=== PATIENT | male | born 1990 | race Caucasian/White ===

== ENCOUNTER 2016-08-30 00:04 | Emergency (ER) | payer SELFPAY ==
[~2016-08-30] VITALS: Ht 167.6 cm; Wt 68.4 kg
[2016-08-30 00:05] VITALS: BP 116/71
== END 2016-08-30 01:24 | disposition home or self-care (01) ==
LOC: ED 01:00
DX: F11.129 Opioid abuse with intoxication, unspecified (principal); F17.200 Nicotine dependence, unspecified, uncomplicated
CPT/HCPCS: 99281